=== PATIENT | female | born 1945 | race Caucasian/White ===

== ENCOUNTER 2017-03-26 00:12 | Inpatient (IN) | payer MEDICARE, OTHER ==
[2017-03-26] MEDS ORDERED: HYDROmorphone HCL INJ 2 MG/ML VIAL IV ONE (00:32)
[2017-03-26] MEDS ORDERED: ONDANSETRON INJ 4 MG/2 ML VIAL IV ONE ×2 (00:32→12:00)
--- NOTE | 2017-03-26 01:23 | RAD ---
EXAM DESCRIPTION: Ankle,Right 3 Views CLINICAL HISTORY: pain/deformity s/p fall COMPARISON: None. FINDINGS: 3 views of the right ankle. Acute mildly displaced fracture of the distal fibula above the level of the ankle mortise. Likely tibiotalar dislocation with fracture of the medial malleolus. Plantar calcaneal spur. Osteopenia. IMPRESSION: 1. Likely unstable right ankle fracture dislocation. Moderately displaced fracture of the distal fibula above the level of the ankle mortise. Mildly displaced medial malleolus fracture. Electronically signed by: Junior Muse 03/26/2017 1:22 AM [facility]
--- NOTE | 2017-03-26 01:25 | RAD ---
EXAM DESCRIPTION: Tibia/Fibula,Right CLINICAL HISTORY: pain/deformity s/p fall COMPARISON: None. FINDINGS: 2 views of the right tibia and fibula. Incompletely visualized likely unstable fracture dislocation of the distal right ankle. Please see dictation of the ankle for further details. No acute fracture of the tibial or fibular diaphyses. No fractures of the proximal tibia. IMPRESSION: 1. Incompletely visualized fracture or dislocation of the right ankle. No other fractures identified. Electronically signed by: Junior Muse 03/26/2017 1:24 AM [facility]
--- NOTE | 2017-03-26 01:25 | RAD ---
EXAM DESCRIPTION: Knee,Right 2 or More Views CLINICAL HISTORY: pain s/p fall COMPARISON: None. FINDINGS: 2 views of the right knee. No acute fracture or dislocation. Normal osseous mineralization. No definite joint effusion. IMPRESSION: No acute fracture or dislocation of the right knee. Electronically signed by: Junior Muse 03/26/2017 1:24 AM [employer]
--- NOTE | 2017-03-26 01:26 | ED.PDOC ---
History of Present Illness - General Chief Complaint: Lower Extremity Injury Stated Complaint: Fall with right leg injury Time Seen by Provider: 03/26/17 00:15 Source: RN notes reviewed, Vital Signs reviewed, family - Exam Limitations: other - Dementia - History of Present Illness Initial Comments: brings patient in after a fall with R ankle and knee pain. He reports she wanders around the house at night. Tonight he heard her fall in the living room. She can't say what happened and does not remember falling. Denies other injuries. Occurred: just prior to arrival Pain - Lower Extremity: moderate: Right Knee, Right Ankle Method of Injury: fell Improving Factors: immobilization, rest Worsening Factors: movement Allergies/Adverse Reactions: Allergies NO KNOWN ALLERGY Allergy (Unverified 09/21/12 17:15) Home Medications: Ambulatory Orders Escitalopram Oxalate [Lexapro] 20 mg PO BEDTIME 03/26/17 Lorazepam Gel 1 ml TD Q4H PRN 03/26/17 Lorazepam [Ativan] 0.5 mg PO Q8H PRN 03/26/17 Memantine HCl [Namenda] 10 mg PO BID 03/26/17 Metoprolol Tartrate 50 mg PO DAILY 03/26/17 Nitroglycerin [Nitrostat] 0.4 mg SL Q5MIN PRN 03/26/17 Omeprazole [Prilosec Cap] 40 mg PO DAILY 03/26/17 QUEtiapine FUMARATE [SEROquel] 100 mg PO BEDTIME 03/26/17 Simvastatin [Zocor] 40 mg PO BEDTIME 03/26/17 Tramadol HCl 50 mg PO Q6H PRN 03/26/17 amLODIPine BESYLATE [Norvasc] 5 mg PO DAILY 03/26/17 Review of Systems - Review of Systems Unable to Obtain Due To: dementia Family Medical History - Family History Mother Family History: Unknown Living Status: Physical Exam - Physical Exam General Appearance: Comfortable, No apparent distress, Well Developed, Well Groomed, Well Hydrated, Well Nourished Cardiovascular/Respiratory: regular rate, rhythm, no M/R/G, normal peripheral pulses, normal breath sounds, no respiratory distress Leg: bone tenderness - Proximal R Tibia Knee: normal inspection, non-tender, no evidence of injury Ankle: bone tenderness - R ankle, deformity - R ankle, limited ROM, pain, swelling Foot: normal inspection, no evidence of injury, normal ROM Neuro/Tendon: normal sensation, normal motor functions, normal tendon functions , responds to pain Mental Status: disoriented x 3 Skin: normal color, warm/dry Progress - Progress Progress: 03/26/17 02:54 Floor does not have room to admit patient. Discussed with Dr. Sneed, unable to get a hold of Dr. Montgomery. Will splint and wait for Dr. Montgomery to be available in AM. - EKG/XRAY/CT XRAY: ankle - Likely unstable R ankle fracture dislocation. Mod displaced distal fibula and mildly displaced medial Malleolus fractures per Radiologist - Additional EKG/XRAY/Consults XRAY #2: knee - No fracture/dislocation R knee per Radiologist XRAY #3: Tib/Fib: fracture as noted above per Radiologist Procedures - Splinting Right Ankle Hand-Made Type: fiberglass Splint: sugar-tong - with posterior splint Pre-Proc Neuro Vasc Exam: normal Post-Proc Neuro Vasc Exam: normal - Joint Reduction right ankle Conscious Sedation: No Reduction Attempts: 1 Pre-Procedure NV Exam: Yes Post Joint Reduction Film: joint not reduced Departure - Departure Clinical Impression: Ankle fracture, bimalleolar, closed Qualifiers: Encounter type: initial encounter Laterality: right Qualified Code(s): S82.841A - Displaced bimalleolar fracture of right lower leg, initial encounter for closed fracture Time of Disposition: 02:25 Disposition: Admit Patient Condition: Poor Home Medications: Ambulatory Orders Escitalopram Oxalate [Lexapro] 20 mg PO BEDTIME 03/26/17 Lorazepam Gel 1 ml TD Q4H PRN 03/26/17 Lorazepam [Ativan] 0.5 mg PO Q8H PRN 03/26/17 Memantine HCl [Namenda] 10 mg PO BID 03/26/17 Metoprolol Tartrate 50 mg PO DAILY 03/26/17 Nitroglycerin [Nitrostat] 0.4 mg SL Q5MIN PRN 03/26/17 Omeprazole [Prilosec Cap] 40 mg PO DAILY 03/26/17 QUEtiapine FUMARATE [SEROquel] 100 mg PO BEDTIME 03/26/17 Simvastatin [Zocor] 40 mg PO BEDTIME 03/26/17 Tramadol HCl 50 mg PO Q6H PRN 03/26/17 amLODIPine BESYLATE [Norvasc] 5 mg PO DAILY 03/26/17 Decision To Admit - Decistion To Admit Decision to Admit Reason: Admit from ER Decision to Admit Date: 03/26/17 Decision to Admit Time: 02:24
--- NOTE | 2017-03-26 02:53 | RAD ---
EXAM DESCRIPTION: Ankle,Right 2 Views CLINICAL HISTORY: post reduction COMPARISON: Same day FINDINGS/IMPRESSION: Redemonstrated right ankle fracture dislocation. Moderately displaced distal fibular fracture above the level of the ankle mortise. Mildly displaced medial malleolus fracture. Plantar calcaneal spur. No significant change in alignment compared with the previous study. Electronically signed by: Junior Muse 03/26/2017 2:52 AM [facility]
--- NOTE | 2017-03-26 09:00 | RAD ---
EXAM DESCRIPTION: Ankle,Right 2 Views CLINICAL HISTORY: Dr. Montgomery requests repeat trauma COMPARISON: 26 March 2017 time 2:26 TECHNIQUE: AP and lateral right FINDINGS: A bimalleolar fractures observed. There is disruption of the ankle mortise. There is lateral subluxation of the talus in relation to the tibia. A plantar calcaneal spurs observed. Osteopenia is noted. Soft tissue swelling is seen. Alignment is not significantly improved when compared with prior exams. IMPRESSION: Bimalleolar fracture dislocation of the ankle is observed with lateral subluxation of the talus relation to the tibia. Electronically signed by: Yosef Mckeon MD 03/26/2017 8:58 AM [facility]
[2017-03-26] MEDS ORDERED: LIDOCAINE 2 % GEL 5 ML TUBE TOP ONE (11:07)
[2017-03-26] MEDS ORDERED: fentaNYL CITRATE INJ 50 MCG/ML AMP ONE (11:07)
[2017-03-26] MEDS ORDERED: LACTATED RINGERS 1,000 ML ONE (11:07)
[2017-03-26] MEDS ORDERED: SODIUM CHLORIDE 0.9% (FLUSH) 10 ML SYG IV PRN (11:12)
[2017-03-26] MEDS ORDERED: ONDANSETRON INJ 4 MG/2 ML VIAL IV PRN (11:12)
[2017-03-26] MEDS ORDERED: LEVALBUTEROL NEBS 1.25 MG/3 ML VIAL INH PRN (11:12)
[2017-03-26] MEDS ORDERED: MORPHINE SULFATE INJ 10 MG/ML VIAL IV PRN (11:12)
--- NOTE | 2017-03-26 11:15 | HP ---
HISTORY OF PRESENT ILLNESS: This 71-year-old, white female is admitted to the hospital via the Emergency Room after a significant fall which occurred at home last evening. She has a significant problem with severe disability associated with dementia. Her heard the patient fall and went over and tried to help her get up, but because of ankle deformity and her inability to support her weight, he called 911 and EMS was able to come and bring her to the Emergency Room. In the Emergency Room, she was found to have an unstable bimalleolar right ankle fracture which was not able to be bearing weight and will require orthopedic treatment course. Surgery is to be performed later in the afternoon on the day of admission because of the need for getting specialized equipment in order to do the procedure of stabilization. The patient is unable to contribute to her history, so the history was primarily from the as well as the patient's two sisters. The patient is admitted to the hospital for anticipation of the surgical procedure to assist with stabilizing the unstable fracture and then to continue with analgesic control and physical therapy evaluation and rehab while here until she may eventually require continued rehabilitation in a local rehab facility. PAST MEDICAL HISTORY: 1. Advancing dementia with disability. 2. History of rheumatic fever as a child with no sequelae. PAST SURGICAL HISTORY: 1. Cervical spine with 3 vertebrae fused. 2. Ganglion cyst. 3. One . OB HISTORY: She has had 3 pregnancies and 3 deliveries. CURRENT MEDICATIONS: Please refer to medicines listed by nurse for verified home medications. ALLERGIES: NONE KNOWN. FAMILY HISTORY: Positive for cancer, coronary artery disease, and dementia. 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 She has never smoked tobacco. REVIEW OF SYSTEMS: GENERAL: Weight ist able. No fever or chills recently. HEENT: Hearing and vision appear to be fairly good, but the patient is not able to communicate as well as she was hoped to. LUNGS: Occasional shortness of breath, no cough, no hemoptysis. CARDIOVASCULAR: No significant palpitations or chest pains. GASTROINTESTINAL: Appetite is fair. No bleeding into the stool. No melena. GENITOURINARY: No dysuria. EXTREMITIES: Significant pain in the right ankle after a fall. NEUROLOGIC: Significant disability from dementia with inability to fully converse and contribute to her history. She is able to ambulate, but is at increased fall risk. The patient is not safe to be cared for her at home even with her . PHYSICAL EXAMINATION: VITAL SIGNS: Temperature up to 99.6. Blood pressure has varied between 145/91 down to 92/54. Pulse oximetry varying between 99% on room air down to 96%. Estimated weight is 83.9 kg. GENERAL: The patient is able to occasionally communicate by nodding her head yes or shaking the head no, generally appropriately, but many times she will just stare and does not answer the questions asked. The and sisters are able to assist with the collection of history data. NECK: Supple. LUNGS: Diminished breath sounds, otherwise clear. CARDIOVASCULAR: Heart tones are regular without any significant gallops. No chest wall pain. ABDOMEN: Generally soft to palpation with no organomegaly, masses or tenderness. EXTREMITIES: Significant pain and discomfort even on slight movement or palpation of the right ankle with associated deformity noted. Posterior splint is in place to assist with stabilization anticipating surgical repair. NEUROLOGIC: The patient has significant disability with her dementia having progressed over recent months. Difficulty communicating. The patient does walk , but is unable to do so now because of the unstable fracture. RADIOLOGY: X-ray shows bimalleolar fracture of the right ankle with dislocation associated. ASSESSMENT: 1. Acute bimalleolar unstable ankle fracture on the right requiring surgical intervention to stabilize. 2. Advanced dementia with disability minimizing the patient's ability to communicate and interact with others. 3. Significant fall risk is noted. PLAN: The patient will be going to surgery when the orthopedic hardware required is available later on the afternoon of admission. Discussed with family the various risk factors and they are unable to care for the patient at home even postoperatively. This will require patient advice with Social Service assistance and eventually will be able to participate with local rehab facility when clinically stable to participate. Closely observe and monitor with proper analgesia in the interim. #[id number] [facility]
[2017-03-26] MEDS: KETOROLAC TROMETHAMINE INJ 30 MG/ML VIAL IV SCH ×2 (11:35→19:51)
[2017-03-26] MEDS ORDERED: ceFAZolin SODIUM 1 GM VIAL ONE ×2 (11:38→12:11)
[2017-03-26] MEDS ORDERED: VANCOMYCIN HCL INJ 1,000 MG VIAL IVPB ONE ×3 (11:38→14:15)
[2017-03-26] MEDS ORDERED: SODIUM CHL 0.9% 100ML MINI-BAG 100 ML IVPB ONE (11:39)
[2017-03-26] MEDS ORDERED: SODIUM CHLORIDE 0.9% 250ML 250 ML ONE (11:41)
[2017-03-26] MEDS ORDERED: METOCLOPRAMIDE HCL INJ 10 MG/2 ML VIAL IV ONE (12:00)
[2017-03-26] MEDS ORDERED: PROPOFOL 200 MG/20 ML VIAL IV ONE (12:00)
[2017-03-26] MEDS ORDERED: BUPIVACAINE 0.25% INJ 30 ML VIAL INJ ONE ×2 (12:31→14:20)
[2017-03-26] MEDS ORDERED: ceFAZolin SODIUM 1 GM VIAL INJ ONE ×2 (12:31→14:15)
[2017-03-26] MEDS ORDERED: SODIUM CHLORIDE 0.9% 1000ML 1,000 ML ONE (15:39)
[2017-03-26] MEDS: IV SET AND CAP CHANGE INJ INJ SCH (15:50)
[2017-03-26] MEDS: SODIUM CHLORIDE 0.9% 1000ML 1,000 ML IVS PRN (15:50)
--- NOTE | 2017-03-26 15:50 | RAD ---
EXAM DESCRIPTION: Ankle,Left 2 Views CLINICAL HISTORY: POST OP COMPARISON: 26 March 2017 TECHNIQUE: AP and lateral FINDINGS: The exam is obtained through casting material. The examination demonstrates a plate and screws bridging a fracture of the distal fibula. Screw fixation of the medial malleolar fracture is also observed. Fractures have been reduced to more anatomic alignment. IMPRESSION: ORIF bimalleolar fracture dislocation of the right ankle Electronically signed by: Yosef Mckeon MD 03/26/2017 3:49 PM [facility]
[2017-03-26] MEDS ORDERED: HYDROcodone 5MG/APAP 325MG 1 EA TAB PO PRN (18:00)
[2017-03-26] MEDS ORDERED: MEMANTINE 10 MG TAB ONE (19:35)
[2017-03-26] MEDS ORDERED: ESCITALOPRAM 10 MG TAB ONE (19:36)
[2017-03-26] MEDS: ESCITALOPRAM 10 MG TAB PO SCH (20:53)
[2017-03-26] MEDS: MEMANTINE 10 MG TAB PO SCH (20:53)
[2017-03-26] MEDS: LORazepam 0.5 MG TAB PO PRN (20:57)
[2017-03-26] MEDS: ACETAMINOPHEN 500 MG TAB PO PRN (22:04)
[2017-03-27] MEDS: KETOROLAC TROMETHAMINE INJ 30 MG/ML VIAL IV SCH ×2 (03:49→13:57)
[2017-03-27] MEDS: SODIUM CHLORIDE 0.9% 1000ML 1,000 ML IVS PRN (03:50)
--- NOTE | 2017-03-27 08:21 | PN ---
DATE: 03/27/17 SUBJECTIVE: Ms. Valdes is doing well. She had pain control overnight. OBJECTIVE: Afebrile. Vital signs stable. Dressing is clean, dry and intact. ASSESSMENT: Status post open reduction and internal fixation of ankle. PLAN: We will begin therapy for [id number]. #[id number] [facility]
--- NOTE | 2017-03-27 08:29 | OP ---
DATE OF PROCEDURE: 03/26/17 PREOPERATIVE DIAGNOSIS: 1. Right ankle fracture. POSTOPERATIVE DIAGNOSIS: 1. Right ankle fracture. PROCEDURE 1. Open reduction and internal fixation of ankle.: SURGEON: Humble Montgomery MD. BANQUET STEWARD: Edi Scherer CST, SA-Noemy. ANESTHESIA: General anesthesia. COMPLICATIONS: None. FINDINGS: Comminution of the fibula with fracture of the medial malleolus. There was a small fragment off the posterior medial malleolus as well. INDICATION: Ms. Valdes has a history of fall with twisting injury and subsequently came to the Emergency Room. She had no other injury associated with this fall. She does suffer from dementia and, therefore, there is a degree of difficulty in gaining the story from her, however, her caregiver is with her right now. PROCEDURE: The patient was brought to the Operating Room and placed in supine position. General anesthesia was induced and the the patient's leg was sterilely prepped and draped. Following prepping and draping, an incision was made on the lateral aspect of the ankle directly overlying the fibula. Dissection was carried down to the fibula and the fracture was identified. It was noted that there was pretty significant comminution and she had very osteoporotic bone. Despite that, I was able to achieve a reduction after cleaning up the fracture site. Under fluoroscopic imaging, the plate was placed laterally with a combination of both cortical and locking screws. Attention was then focused on the medial aspect. An incision was made directly oval-shaped the medial malleolus and dissection was carried down to the medial malleolus and the fracture site was identified. Following identification of the fracture site, it was debrided and provisional reduction was achieved. Following the reduction, two cannulated screws were passed across the fracture site. The reduction screw lengths were checked under fluoroscopic imaging to ensure appropriate reduction. The ankle was then manipulated under fluoroscopic imaging to ensure there was no widening of the mortise. There was no widening and, therefore, the wounds were thoroughly irrigated and closed with Nylon suture. Sterile dressings were placed. Splint was placed. The patient was awoken from anesthesia and taken to Recovery. POSTOPERATIVE INSTRUCTIONS: She will be [id number] for likely at least two months. She does suffer from Alzheimer's and this will be difficult to get her to comply with. We will continue to monitor her for healing of the fracture and allow progressive weight-bearing following that. #[id number] [facility]
[2017-03-27] MEDS: MEMANTINE 10 MG TAB PO SCH ×2 (09:40→20:31)
[2017-03-27] MEDS: METOPROLOL SUCCINATE XL 25 MG TAB PO SCH (09:40)
[2017-03-27] MEDS: amLODIPine BESYLATE 5 MG TAB PO SCH (09:40)
[2017-03-27] MEDS: KCL 20MEQ/0.45% NS 1,000 ML IVS PRN (18:06)
[2017-03-27] MEDS: ACETAMINOPHEN 500 MG TAB PO PRN (18:19)
--- NOTE | 2017-03-27 19:17 | PN ---
DATE: 03/27/17 SUPERVISING PHYSICIAN: Jose E Heard M.D. SUBJECTIVE: The patient is resting in bed with her leg elevated. Dressing is in place. She remains afebrile. Her family is present. The patient does not communicate but nods her head. She appears to be in no acute distress. OBJECTIVE: VITAL SIGNS: Temperature 98.0, pulse 84, blood pressure 113/80, respirations 20, satting 98% on room air. CHEST: Lungs are clear to auscultation. HEART: Regular rate and rhythm. ABDOMEN: Soft, non-tender. Positive bowel sounds. EXTREMITIES: Right leg has a bulky dressing splint in place. Capillary refill is brisk. Pulses are strong bilaterally. NEUROLOGIC: She only responds to yes or no questions with a nod and smiles, but no discernible neurological deficits are noted. Family present notes this is pretty much her baseline status. LABORATORY: Postoperative H&H shows 10.2 hemoglobin, 30 hematocrit, white count 7,200. Chemistries show just a potassium at 3.5 with sodium 138. BUN 31 , creatinine 1.58 with calcium 7.8. ASSESSMENT: 1. Postoperative day 1 for an open reduction and internal fixation of the right ankle status post same level fall with surgery being performed by Dr. Humble Montgomery, orthopedic surgeon. 2. Advancing dementia with disability minimizing the patient's ability to communicate and making rehab potential difficult. 3. Significant risk for falls. PLAN: The patient will be followed as she continues to progress through her postoperative phase and physical therapy. Arrangements have been made for the patient to be transferred to [facility] for continued physical therapy either on Thursday or Thursday. Will continue to monitor the patient closely until discharge. Once discharged, she will need continued followup with Dr. Montgomery and her primary care provider, Dr. Mann. #[id number] [facility]
[2017-03-27] MEDS: ESCITALOPRAM 10 MG TAB PO SCH (20:30)
[2017-03-27] MEDS: QUEtiapine FUMARATE 100 MG TAB PO SCH (20:31)
[2017-03-28] MEDS: KCL 20MEQ/0.45% NS 1,000 ML IVS PRN (06:46)
[2017-03-28] MEDS: MEMANTINE 10 MG TAB PO SCH ×2 (09:21→21:11)
[2017-03-28] MEDS: ACETAMINOPHEN 500 MG TAB PO PRN (09:21)
[2017-03-28] MEDS: amLODIPine BESYLATE 5 MG TAB PO SCH (09:21)
[2017-03-28] MEDS: METOPROLOL SUCCINATE XL 25 MG TAB PO SCH (09:21)
[2017-03-28] MEDS: SODIUM CHLORIDE 0.9% (FLUSH) 10 ML SYG IV SCH ×2 (09:22→21:10)
--- NOTE | 2017-03-28 09:52 | PCM.CORE ---
Physician DVT/VTE - Nurse DVT Assessment & Total Each Risk Factor Represents 5 Points: Hip,Pelvis,leg Fx <1month, Major Trauma < 1 month Each Risk Factor Represents 2 Points: Age 60-74, Major Surgery >45 minutes Each Risk Factor is 1 Point: Obesity (BMI >25) DVT Assessment Score: 15 - 5 or more Very High Risk Treatments: Early Ambulation *, Sequential Compression Device Pharmacological: Enoxaparin 40mg SQ Daily
[2017-03-28] MEDS: ENOXAPARIN SODIUM 30 MG/0.3 ML SYG SUBCU SCH (12:08)
--- NOTE | 2017-03-28 15:19 | PN ---
DATE: 03/28/17 SUBJECTIVE: Ms. Valdes is doing well and her pain is under control. OBJECTIVE: Her wounds are clean. There are no signs or symptoms of infection. PLAN: At this point she can remain nonweightbearing. #[id number] [facility]
[2017-03-28] MEDS ORDERED: POLYETHYLENE GLYCOL 3350 17 GM PCKT PO ONE (16:32)
[2017-03-28] MEDS: QUEtiapine FUMARATE 100 MG TAB PO SCH (21:11)
[2017-03-28] MEDS: ESCITALOPRAM 10 MG TAB PO SCH (21:11)
--- NOTE | 2017-03-28 22:01 | PN ---
DATE: 03/28/17 SUPERVISING PHYSICIAN: Jose E Heard M.D. SUBJECTIVE: The patient again is in bed with the leg elevated. Dressing remains in place. She continues to be noncommunicative but nods her head to yes /no questions. She has been afebrile. She appears to be comfortable in no acute distress. OBJECTIVE: VITAL SIGNS: Temperature 98.4, pulse 67, blood pressure 126/77, respirations 15, satting 95% on room air. I's and O's show a negative balance of 150 with 2100 in, 2250 out. Weight 86.2 kg. CHEST: Lungs are clear to auscultation. HEART: Regular rate and rhythm. ABDOMEN: Soft, non-tender. Positive bowel sounds. EXTREMITIES: Large splint remains in place on the right ankle. Pulses were strong. Capillary refill is brisk. NEUROLOGIC: She remains very pleasant, alert but not oriented to anything other than herself and her . No neurological deficits were noted. LABORATORY: Chemistries today showed an improved potassium to 3.8 with chloride slightly elevated at 112, BUN 16, creatinine 1.01 compared to previous of 1.58, calcium 8.2. ASSESSMENT: 1. Postoperative day 2 for open reduction and internal fixation of the right ankle status post same level fall with surgery being performed by Dr. Humble Montgomrey, orthopedic surgeon. 2. Advanced dementia with disability minimizing the patient's ability to communicate and take care of herself making rehab potential very difficult. 3. Significant risk for falls. PLAN: Will continue to follow the patient as she continues with physical therapy with anticipation of discharging in the near future to [facility]. More likely will discharge Thursday so that final arrangements can be made for her medications, including her Ativan and other arrangements with her outpatient hospice care through [facility]. Will await Dr. Montgomery's consultation and treatment plan as the patient remains nonweightbearing. Until discharge, will continue to monitor and treat appropriately. #[id number] [facility]
[2017-03-29] MEDS ORDERED: POLYETHYLENE GLYCOL 3350 17 GM PCKT PO SCH (09:00)
[2017-03-29] MEDS: POLYETHYLENE GLYCOL 3350 17 GM PCKT PO SCH (09:10)
[2017-03-29] MEDS: MEMANTINE 10 MG TAB PO SCH ×2 (09:11→21:46)
[2017-03-29] MEDS: amLODIPine BESYLATE 5 MG TAB PO SCH (09:11)
[2017-03-29] MEDS: METOPROLOL SUCCINATE XL 25 MG TAB PO SCH (09:11)
[2017-03-29] MEDS: SODIUM CHLORIDE 0.9% (FLUSH) 10 ML SYG IV SCH ×2 (09:12→21:46)
[2017-03-29] MEDS: ENOXAPARIN SODIUM 30 MG/0.3 ML SYG SUBCU SCH (09:15)
[2017-03-29] MEDS: IV SET AND CAP CHANGE INJ INJ SCH (12:36)
[2017-03-29] MEDS: ACETAMINOPHEN 500 MG TAB PO PRN (15:04)
[2017-03-29] MEDS: LORazepam 0.5 MG TAB PO PRN (15:04)
--- NOTE | 2017-03-29 18:18 | PN ---
DATE: 03/29/17 SUPERVISING PHYSICIAN: Jose E Heard M.D. SUBJECTIVE: The patient has been doing well. She was placed in a boot yesterday. She is tolerating this comfortably. Her remains at her side and is making arrangements for discharge tomorrow so that she can go to [facility]. The patient remains very comfortable in no acute distress, and very pleasant. She remains noncommunicative but again still nods her head yes or no, as her notes this is her normal baseline status. OBJECTIVE: VITAL SIGNS: Afebrile, temperature 97.4, blood pressure 139/64, heart rate 74, respirations 16, satting 94% on room air. I's and O's show a negative balance of 398 with 1102 in, 1500 out. Weight is 87.8 kg. CHEST: Clear to auscultation. HEART: Regular rate and rhythm. ABDOMEN: Soft, non- tender. Positive bowel sounds. EXTREMITIES: Right ankle has a boot in place. Capillary refill is brisk. Skin is warm to touch and pink. NEUROLOGIC: She is pleasant, only nods her head and answers yes or no questions which is her baseline mental status. LABORATORY: No repeat laboratory studies are available. ASSESSMENT: 1. Postoperative day 3 for open reduction and internal fixation of the right ankle status post same level fall with surgery being performed by Dr. Humble Montgomery, orthopedic surgeon. 2. Advanced dementia with disability minimizing the patient's ability to communicate and take care of herself making rehab potential very difficult , therefore arrangements for a director long term care care facility. 3. Significant risk for falls secondary to #1 and no weightbearing status. PLAN: The patient will be discharged tomorrow to [facility]. Her has made arrangements to have furniture and things over there prior to admission and arrangements need to be made with [facility] for her medications, including her Ativan and pain management. She remains nonweightbearing and will need physical therapy assessment for treatment and evaluation upon admission. Ordaz continues to be in place. Need to assess whether or not this can be removed prior to discharge as the patient again is only able to do transfers nonweightbearing, but has had no difficulties going from a chair to the bed. Until discharge tomorrow, will continue to monitor and treat appropriately. #[id number] [facility]
[2017-03-29] MEDS: QUEtiapine FUMARATE 100 MG TAB PO SCH (21:46)
[2017-03-29] MEDS: ESCITALOPRAM 10 MG TAB PO SCH (21:46)
--- NOTE | 2017-03-30 08:21 | PN ---
DATE: 03/30/17 SUBJECTIVE: Ms. Valdes is doing well and not having any significant pain. OBJECTIVE: Afebrile. Vital signs stable. Wounds are clean. There are no signs or symptoms of infection. ASSESSMENT: Status post open reduction and internal fixation of ankle. PLAN: She will continue on weight-bearing status. She is to be [facility] to [facility] today. [facility][id number] [facility]
[2017-03-30] MEDS: METOPROLOL SUCCINATE XL 25 MG TAB PO SCH (09:20)
[2017-03-30] MEDS: MEMANTINE 10 MG TAB PO SCH (09:20)
[2017-03-30] MEDS: amLODIPine BESYLATE 5 MG TAB PO SCH (09:20)
[2017-03-30] MEDS: SODIUM CHLORIDE 0.9% (FLUSH) 10 ML SYG IV SCH (09:21)
[2017-03-30] MEDS: POLYETHYLENE GLYCOL 3350 17 GM PCKT PO SCH (09:21)
[2017-03-30] MEDS: ENOXAPARIN SODIUM 30 MG/0.3 ML SYG SUBCU SCH (09:21)
--- NOTE | 2017-03-30 10:48 | DS ---
DISCHARGE DIAGNOSIS: 1. Postoperative day 4 for open reduction and internal fixation of an unstable bimalleolar the right ankle fracture after a same level fall with surgery performed by Dr. Humble Montgomery, orthopedic surgeon. 2. Advanced dementia with disability preventing the patient from fully being able to communicate and take care of herself and the patient requiring ongoing [facility]ci facility care while [id number] and rehabilitation until safe to return home. 3. Significant risk for falls secondary to the [id number] treatment course and recent ankle fracture. HISTORY OF PRESENT ILLNESS: This 71-year-old, white female apparently fell at home with resultant unstable bimalleolar fracture of the ankle necessitating internal fixation and open reduction of fracture dislocation of that ankle. This require significant rehabilitation which was not available at home and she is to be transferred to a fci facility to assist with her ongoing care, especially since she is [id number] with the fracture shoe in place after the surgical intervention has been completed. The patient has advancing dementia with severe disability, resulting in it being quite difficult and not safe for her to be able to be managed at home. PROCEDURE: Open reduction and internal fixation was performed on 03/27/[address] Humble Montgomery to repair a bimalleolar unstable fracture dislocation of the right ankle. This was well tolerated with rehabilitation starting after immobilization performed at the time of surgery. LABORATORY: White count 7,200, hemoglobin dropped to 10.2, INR 1.05. Chemistries showed potassium 3.8, BUN 16 down from 31, and creatinine 1.01 down from 1.58. Glucose 96. Urinalysis generally clean with no cultures obtained. Ankle x-ray after the surgical intervention showed stabilization of the fracture dislocation in an anatomical position. HOSPITAL COURSE: The patient was doing well on the fourth day after surgery. She was still having difficulty communicating, but in many ways seemed to be more stable at the time of discharge than she was at the time of admission. She was ready for continued outpatient management. PLAN: The patient is discharged to [facility] nursing facility for rehabilitation with physical therapy intervention under orthopedic surgery supervision. She is to followup with Dr. Humble Montgomery next 04/06/17, for postoperative evaluation of 10 days as well as for suture removal and further evaluation for rehab instructions. She may followup with Dr. Mann in 2 weeks. is very attentive and will continue also to assist with her ongoing care. care home care is to continue. She is to be non-weight -bearing at [facility]. She is encouraged to breathe deeply to help keep the alveoli of the lungs open and help to prevent pneumonia and to assist with DVT prophylaxis. She is to return if not improving. [facility][id number] [facility]
[2017-03-30 10:59] VITALS: BP 114/62; TEMP 97; O2SAT 94
[2017-03-30] MEDS ORDERED: INFLUENZA VIRUS VACC (ADULT) 0.5 ML SYG IM ONE (11:10)
== END 2017-03-30 13:25 | DRG 494 ==
LOC: ER 00:12 → EDSTATUS 09:40 → MS 11:14
PROVIDERS: ADMIT Emergency Medicine; ATTEND Emergency Medicine
PROC: 0QSG04Z Reposition Right Tibia with Internal Fixation Device, Open Approach (ICD-10-PCS; 2017-03-26)
PROC: 0QSJ04Z Reposition Right Fibula with Internal Fixation Device, Open Approach (ICD-10-PCS; principal; 2017-03-26 11:50)
DX: S82.841A Displaced bimalleolar fracture of right lower leg, initial encounter for closed fracture (principal); W19.XXXA Unspecified fall, initial encounter; Z66 Do not resuscitate; F03.90 Unspecified dementia, unspecified severity, without behavioral disturbance, psychotic disturbance, mood disturbance, and anxiety; Z98.1 Arthrodesis status; Z91.81 History of falling; Y92.008 Other place in unspecified non-institutional (private) residence as the place of occurrence of the external cause; Z79.899 Other long term (current) drug therapy

== ENCOUNTER → 2017-04-06 | Outpatient (CLI) | payer MEDICARE, OTHER ==
--- NOTE | 2017-04-06 10:43 | RAD ---
Study: Three views of the Right Ankle. Indication: ANKLE PAIN Comparison: March 26, 2017. Impression: Prior ORIF of the medial malleolus and lateral malleolus fractures noted. The surgical constructs appear stable. The lateral malleolar fracture is indistinct with progressive healing. On the lateral view there is persistent lucency of the anterior margin of the medial malleolus without complete union. Attention to this site on follow-up recommended as and a component of nonunion may be present. Small tibiotalar joint effusion. Soft tissue swelling about the ankle. Mild progressive ossification superficial to the mid to distal aspect of the lateral malleolar construct. Electronically signed by: Cleveland Kunz MD 04/06/2017 10:41 AM [facility]
== END | disposition home or self-care (01) ==
LOC: RAD 09:03
PROVIDERS: ATTEND Orthopaedic Surgery
DX: M25.571 Pain in right ankle and joints of right foot (principal)

== ENCOUNTER → 2017-04-08 | Outpatient (CLI) | payer MEDICARE, OTHER | END | disposition home or self-care (01) | LOC: GT 06:07 | PROVIDERS: ATTEND Family Medicine | DX: E78.00 Pure hypercholesterolemia, unspecified (principal); I10 Essential (primary) hypertension; K21.9 Gastro-esophageal reflux disease without esophagitis | CPT/HCPCS: 36415; 80053; 85025; P9603 ==

== ENCOUNTER → 2017-05-07 | Outpatient (CLI) | payer MEDICARE, OTHER ==
--- NOTE | 2017-05-07 10:34 | RAD ---
EXAM DESCRIPTION: Right ankle, 4 radiographs CLINICAL HISTORY: CLOSED FX OF ANKLE FINDINGS/ IMPRESSION: Comparison 04/06/2017 Plate and screw fixation distal fibula without hardware fracture or displacement. 2 screws traverse the medial malleolus fracture. Faint callus along the fracture of the medial malleolus. Fracture line of the fibula not seen. Ankle mortise is symmetric. No acute fracture or osteochondral lesion No tarsal fracture. Soft tissue swelling Large well-corticated plantar calcaneal spur Electronically signed by: Juan Ramon Aguilar MD 05/07/2017 10:32 AM [facility]
== END | disposition home or self-care (01) ==
LOC: RAD 08:40
PROVIDERS: ATTEND Orthopaedic Surgery
DX: S82.91XD Unspecified fracture of right lower leg, subsequent encounter for closed fracture with routine healing (principal)

== ENCOUNTER → 2017-06-18 | Outpatient (CLI) | payer MEDICARE, OTHER ==
--- NOTE | 2017-06-19 17:36 | RAD ---
EXAM DESCRIPTION: Ankle,Right 3 Views CLINICAL HISTORY: CLOSED FX OF ANKLE COMPARISON: 07 May 2017 TECHNIQUE: 3 views right FINDINGS: The exam reveals a plate and screws bridging a fracture of the distal fibula and screws remain malleolar fracture. No evidence of loosening or infection is seen. Mild osteopenia is noted. A plantar calcaneal spur is noted. No new injury is noted. IMPRESSION: ORIF bimalleolar fracture of the right ankle. No complication is observed. Electronically signed by: Yosef Mckeon MD 06/19/2017 5:35 PM [facility]
== END ==
LOC: RAD 08:00
PROVIDERS: ATTEND Orthopaedic Surgery
DX: S82.91XD Unspecified fracture of right lower leg, subsequent encounter for closed fracture with routine healing (principal)

== ENCOUNTER → 2017-09-28 | Outpatient (CLI) | payer OTHER | LOC: GT 08:13 | PROVIDERS: ATTEND Family Medicine | DX: I10 Essential (primary) hypertension (principal); K21.9 Gastro-esophageal reflux disease without esophagitis ==

== ENCOUNTER 2018-05-01 02:43 | Inpatient (IN) | payer MEDICAID, MEDICARE, OTHER ==
[2018-05-01] MEDS ORDERED: SODIUM CHLORIDE 0.9% 1000ML 1,000 ML IVS ONE ×2 (03:05→04:10)
[2018-05-01] MEDS ORDERED: PANTOPRAZOLE SODIUM IV 40 MG VIAL IV ONE (03:05)
--- NOTE | 2018-05-01 03:36 | RAD ---
EXAM DESCRIPTION: Chest,1 View CLINICAL HISTORY: 72 years Female, VOMITING, HYPOXEMIA COMPARISON: None. FINDINGS: No consolidation. No pneumothorax. No significant pleural effusion. Cardiomediastinal silhouette is unremarkable. Osseous structures are unremarkable. IMPRESSION: No acute findings. Electronically signed by: Mikey Rico MD 05/01/2018 3:35 AM [facility]
--- NOTE | 2018-05-01 04:35 | ED.PDOC ---
History of Present Illness - General Chief Complaint: GI Problem Stated Complaint: vomiting coffee ground emesis x's 3 days Time Seen by Provider: 05/01/18 02:54 Source: family Exam Limitations: clinical condition - History of Present Illness Initial Comments: PT TRANSPORTED FROM OR FOR COFFEE GROUND EMESIS, HYPOTENSION AND TACHYCARDIA. HAS HAD MULTIPLE EPISODES OVER PAST 2 DAYS. Severity: severe Improving Factors: nothing Worsening Factors: nothing Allergies/Adverse Reactions: Allergies NO KNOWN ALLERGY Allergy (Verified 05/01/18 03:11) Home Medications: Ambulatory Orders Escitalopram Oxalate [Lexapro] 20 mg PO BEDTIME 03/26/17 Memantine HCl [Namenda] 10 mg PO BID 03/26/17 Omeprazole [Prilosec Cap] 40 mg PO DAILY 03/26/17 QUEtiapine FUMARATE [Seroquel] 50 mg PO BID 03/26/17 Simvastatin [Zocor] 40 mg PO BEDTIME 03/26/17 amLODIPine BESYLATE [Norvasc] 5 mg PO DAILY 03/26/17 Polyethylene Glycol 3350 [Miralax] 17 gm PO DAILY #30 pckt 03/30/17 Acetaminophen [Tylenol] 1,000 mg PO Q4HR PRN 05/01/18 Buspirone HCl 10 mg PO TID 05/01/18 Docusate Sodium [Colace Cap] 100 mg PO BID 05/01/18 Magnesium Hydroxide [Milk Of Magnesia] 30 ml PO DAILY PRN 05/01/18 Metoprolol Succinate [Toprol Xl] 50 mg PO DAILY 05/01/18 Ondansetron [Zofran Odt] 4 mg SL Q6HRS PRN 05/01/18 Phenergan Gel 0.2 ml TOP Q4HR PRN 05/01/18 Promethazine HCl Inj [Phenergan Inj] 25 mg IM Q6HR PRN 05/01/18 Review of Systems - Review of Systems Constitutional: Denies: chills, fever EENTM: States: see HPI Respiratory: States: see HPI Cardiology: States: see HPI Gastrointestinal/Abdominal: States: vomiting. Denies: diarrhea Genitourinary: States: see HPI Musculoskeletal: States: see HPI Skin: States: see HPI Neurological: States: see HPI Endocrine: States: see HPI Hematologic/Lymphatic: States: see HPI Unable to Obtain Due To: dementia Past Medical History (General) - Patient Medical History Hx Seizures: No Hx Stroke: No Hx Dementia: Yes Hx Asthma: No Hx of COPD: No Hx Cardiac Disorders: No Hx Congestive Heart Failure: No Hx Pacemaker: No Hx Hypertension: Yes Hx Thyroid Disease: No Hx Diabetes: No Hx Gastroesophageal Reflux: Yes Hx Renal Disease: No Hx Cancer: No Hx of HIV: No Hx Hepatitis C: No Hx MRSA: No Surgical History: noncontributory - Vaccination History Hx Tetanus, Diphtheria Vaccination: Yes Hx Influenza Vaccination: Yes Hx Pneumococcal Vaccination: Yes - Social History Hx Tobacco Use: No Hx Alcohol Use: No Hx Substance Use: No Hx Physical Abuse: No Hx Emotional Abuse: No - Activities of Daily Living Fdc/Assisted Living (if applicable):: [facility] Family Medical History - Family History Mother Family History: Unknown Living Status: Physical Exam - Physical Exam General Appearance: Frail, Other - UNRESPONSIVE Eye Exam: bilateral normal Ears, Nose, Throat: other - COFFEE GROUND EMESIS CIRCUMORALLY Neck: non-tender, normal inspection Respiratory: lungs clear, other - TACHYPNEIC, SATS 87% RA (HYPOXIC) Cardiovascular/Chest: tachycardia, systolic murmur - 2/ Gastrointestinal/Abdominal: non tender, soft, no organomegaly Extremity: non-tender, no pedal edema Neurologic: other - PT APPEARS AT HER BASELINE, NON VERBAL, DOES NOT FOLLOW COMMANDS Skin Exam: other - PALE, COOL, CLAMY Lymphatic: no adenopathy Progress - Progress Progress: 05/01/18 04:40 PT'S PULSE 120'S AFTER 2L BOLUS, BP 78, D/W MICAH BARNETT OK FOR HOSPICE TO ADMIT. - EKG/XRAY/CT XRAY: chest - L[facility] Departure - Departure Clinical Impression: Sepsis associated hypotension Dementia Qualifiers: Dementia type: unspecified type Dementia behavioral disturbance: without behavioral disturbance Qualified Code(s): F03.90 - Unspecified dementia without behavioral disturbance Hypertension Qualifiers: Hypertension type: essential hypertension Qualified Code(s): I10 - Essential (primary) hypertension Disposition: Admit Patient Condition: Serious Departure Forms: ED Discharge - Pt. Copy, Patient Portal Self Enrollment Referrals: Kt Mann MD [Primary Care Provider] - 1-2 Weeks Home Medications: Ambulatory Orders Escitalopram Oxalate [Lexapro] 20 mg PO BEDTIME 03/26/17 Memantine HCl [Namenda] 10 mg PO BID 03/26/17 Omeprazole [Prilosec Cap] 40 mg PO DAILY 03/26/17 QUEtiapine FUMARATE [Seroquel] 50 mg PO BID 03/26/17 Simvastatin [Zocor] 40 mg PO BEDTIME 03/26/17 amLODIPine BESYLATE [Norvasc] 5 mg PO DAILY 03/26/17 Polyethylene Glycol 3350 [Miralax] 17 gm PO DAILY #30 pckt 03/30/17 Acetaminophen [Tylenol] 1,000 mg PO Q4HR PRN 05/01/18 Buspirone HCl 10 mg PO TID 05/01/18 Docusate Sodium [Colace Cap] 100 mg PO BID 05/01/18 Magnesium Hydroxide [Milk Of Magnesia] 30 ml PO DAILY PRN 05/01/18 Metoprolol Succinate [Toprol Xl] 50 mg PO DAILY 05/01/18 Ondansetron [Zofran Odt] 4 mg SL Q6HRS PRN 05/01/18 Phenergan Gel 0.2 ml TOP Q4HR PRN 05/01/18 Promethazine HCl Inj [Phenergan Inj] 25 mg IM Q6HR PRN 05/01/18 Critical Care Note - Critical Care Note Total Time (mins): 40 Comments: EVENT: SEPSIS WITH SHOCK FINDINGS: SBP 78, PULSE 153, SYSTEM AT RISK: CARDIOVASCULAR INTERVENTION: FLUIDS, ADMISSION Decision To Admit - Decistion To Admit Decision to Admit Reason: Admit from ER Decision to Admit Date: 05/01/18 Decision to Admit Time: 04:41
[2018-05-01] MEDS ORDERED: CHLORHEXIDINE GLUCONATE 4 % 15 ML UD TOP ONE (05:35)
[2018-05-01] MEDS ORDERED: LIDOCAINE 1% 10 ML VIAL INJ ONE (05:36)
--- NOTE | 2018-05-01 05:38 | HP ---
SUPERVISING PHYSICIAN: Jose E Heard M.D. CHIEF COMPLAINT: Hypotension. HISTORY OF PRESENT ILLNESS: Ms. Valdes is a 72 year-old female patient that was brought to the Emergency Room from [facility] early this morning after she started having some coffee-ground type emesis. She is currently on hospice care with [facility] for advanced stage dementia. In the E. R., she was noted to be hypotensive and tachycardic with vital signs showing a blood pressure of 70/50 with a heart rate of 153. She had a low temperature of 99. She was satting 87% on nasal cannula at 3 liters. She was put on a nonrebreather at 12 liters and increased to 95%. Her family, which includes her , after discussing with Ian Hung physician, they wished to go to care and comfort measures and after discussing with the hospice care with [facility], [facility] requested that the patient be placed into the hospital under inpatient hospice. Her notes that she started having some stomach pains early in the week around Thursday that progressively worsened to where she was having emesis as described as coffee grounds and there was also mention of some change in her stools from the [facility] that were not normal but not described in any specific sense. [facility] nurse is going to admit the patient. Mrs. Valdes is in critical condition at time of admission. PAST MEDICAL HISTORY: 1. Advanced dementia on hospice care. 2. History of rheumatic fever as a child. PAST SURGICAL HISTORY: 1. Open reduction and internal fixation of the right ankle. 2. Cervical spine with 3 vertebrae fused. 3. Ganglion cyst removal. 4. section. CURRENT MEDICATIONS: 1. Zofran 4 mg every 6 hours. 2. Phenergan 25 mg every 6 hours as needed. 3. Tylenol 1,000 mg every 4 hours as needed for pain. 4. Milk of Magnesia 30 mg daily as needed. 5. Wellbutrin 10 mg b.i.d. 6. Colace 100 mg b.i.d. 7. Phenergan gel 0.2 mg topically every 4 hours as needed for nausea. 8. Toprol XL 50 mg daily. 9. Lexapro 20 mg at bedtime. 10. Namenda 10 mg b.i.d. 11. MiraLAX 17 grams daily. 12. Prilosec 40 mg daily. 13. Seroquel 0 mg b.i.d. 14. Zocor 40 mg at bedtime. 15. Norvasc 5 mg daily. ALLERGIES: NO KNOWN DRUG ALLERGIES. CODE STATUS: HOSPICE CARE, CARE AND COMFORT. DO NOT RESUSCITATE. FAMILY HISTORY: Positive for cancers, coronary artery disease and dementia. SOCIAL HISTORY: The patient resides at [facility]. She is . She has never smoked tobacco and has been in the [facility] since March 30, 2017. REVIEW OF SYSTEMS: Unobtainable due to the patient's unresponsiveness. PHYSICAL EXAMINATION: VITAL SIGNS: Temperature 99, pulse 153, blood pressure 70/50, respirations 28, satting 87% on nasal cannula at 3 liters, increasing to 95% on nonrebreather at 12 liters. Admission weight 69.7 kg. GENERAL: The patient is unresponsive, frail, pale in color. HEENT: Tympanic membranes are clear bilaterally. Oropharynx was notable for coffee ground emesis around her mouth. NECK: Supple, non-tender with full range of motion. CHEST: Significant with saturations 87% showing to be hypoxic on room air. CARDIOVASCULAR: Tachycardic rhythm with a systolic murmur noted at 2/6. No gallops or rubs. ABDOMEN: Non-tender, soft. Positive bowel sounds. EXTREMITIES: Without any edema. NEUROLOGIC: The patient is nonverbal. She does not follow any commands which is her baseline according to her family. SKIN: She is pale, cool and clammy. LABORATORY: White count on admission was 17,700 with hemoglobin 11.4, hematocrit 35.1, platelet count 299,000. Differential did show a left shift. Coagulation studies showed PT 11.2, PTT 17.8. Chemistries showed potassium 2.8, carbon dioxide 20, BUN 77, creatinine 3.64, glucose 263, calcium 9. AST 50, ALT 34. RADIOLOGY: Chest x-ray showed no acute findings. ASSESSMENT: 1. Probable sepsis, unknown source with signs of hypovolemic shock requiring fluids initially on admission with the patient being on hospice now transferred to inpatient care and comfort measures. 2. Probable gastrointestinal bleed both upper and lower. 3. Acute renal failure probably exacerbated by dehydration. 4. Electrolyte imbalance to include moderate hypokalemia. 5. Advanced dementia on hospice care. PLAN: The patient is going to be admitted by hospice care with [facility] for inpatient services under hospice. She will be on care and comfort measures only with orders being provided and written by the hospice nurse. Family is at bedside and I spent a length time discussing the patient's prognosis explaining to her family that her condition is grim. The family is very appreciative of this and understands the situation, and is prepared for what is to come. They are thankful for the services. We will continue to follow the patient as needed and help with hospice as required. Until the patient is discharged will continue to monitor and treat as needed. [id number]
[2018-05-01] MEDS ORDERED: ONDANSETRON INJ 4 MG/2 ML VIAL IV PRN (07:06)
[2018-05-01] MEDS: MORPHINE SULFATE INJ 10 MG/ML VIAL IV PRN ×2 (08:15→19:20)
[2018-05-01] MEDS ORDERED: IV SET AND CAP CHANGE INJ INJ SCH (08:30)
[2018-05-01] MEDS ORDERED: PROMETHAZINE HCL INJ 12.5 MG in SODIUM CHLORIDE 0.9% 50ML 50 ML IVPB PRN (10:31)
[2018-05-01] MEDS: SODIUM CHLORIDE 0.9% (FLUSH) 10 ML SYG IV PRN (19:19)
[2018-05-02] MEDS: MORPHINE SULFATE INJ 10 MG/ML VIAL IV PRN ×5 (06:11→23:25)
[2018-05-02] MEDS: SODIUM CHLORIDE 0.9% 1000ML 1,000 ML IVS PRN (09:37)
[2018-05-02 10:58] VITALS: BP 113/78; TEMP 97.3; O2SAT 97
[2018-05-02] MEDS: SODIUM CHLORIDE 0.9% (FLUSH) 10 ML SYG IV PRN ×4 (11:22→17:57)
[2018-05-02] MEDS ORDERED: SCOPOLAMINE PATCH 1.5MG 1 EA TD PRN (12:12)
[2018-05-02] MEDS ORDERED: MORPHINE SULFATE INJ 10 MG/ML VIAL IV PRN (12:15)
[2018-05-02] MEDS ORDERED: MORPHINE SULFATE INJ 10 MG/ML VIAL ONE ×3 (17:51→23:23)
[2018-05-02] MEDS ORDERED: NON-FORMULARY MEDICATION 1 EA MIS SL PRN (19:59)
--- NOTE | 2018-05-02 20:05 | PN ---
DATE: 05/02/18 SUPERVISING PHYSICIAN: Jose E Heard M.D. SUBJECTIVE: The patient continues to be unresponsive, only at times when she is obviously hurting and wakes up requesting pain medications. She has had multiple family members and friends at the bedside. Hospice nurse continues to monitor the patient's condition as needed. Vital signs are this point are showing to be fairly stable compared to admission. She has had no more emesis and has not had, as far as I know, any continued stools consistent with a GI bleed. OBJECTIVE: VITAL SIGNS: Temperature 98.5, pulse 101, blood pressure 116/72, respirations 16, satting 95% on nasal cannula at 4 liters at rest. I's and O's show a negative balance of 240 with weight 69.7 kg. GENERAL: The patient appears to be resting comfortably in no acute distress. She is unresponsive to verbal stimulus and minimally to painful stimulus. CHEST: Lungs remain clear but diminished throughout. HEART: Regular rate and rhythm with a murmur noted at 2/6. ABDOMEN: Nondistended but soft with positive bowel sounds. EXTREMITIES: Without any edema. SKIN: She remains warm and very pale. No labs or radiographic studies are being followed. ASSESSMENT: 1. Probable sepsis, unknown source with signs of hypovolemic shock requiring fluids initially on admission with the patient being on hospice now transferred to inpatient care and comfort measures. 2. Probable gastrointestinal bleed both upper and lower. 3. Acute renal failure probably exacerbated by dehydration. 4. Electrolyte imbalance to include moderate hypokalemia. 5. Advanced dementia on hospice care. PLAN: Will continue to follow the patient as needed. At this point hospice has written all orders. I continue to visit with family and offer support as needed and they are appreciative of the hospital and staff. Given the patient's grim condition and very poor prognosis, we anticipate either discharging home as she is showing to be stable if the family wants to take her back to [place] or certainly the patient could deteriorate quickly in the next 24 hours. Until then will continue to monitor as needed and offer any assistance that we can. #[id number] [facility]
[2018-05-02] MEDS ORDERED: SODIUM CHLORIDE 0.9% (FLUSH) 10 ML SYG IV SCH (21:00)
[2018-05-02] MEDS ORDERED: ATROPINE 1% OPHTH SOL 1 DROP DROPS ONE (21:22)
[2018-05-03] MEDS: SODIUM CHLORIDE 0.9% 1000ML 1,000 ML IVS PRN (15:03)
--- NOTE | 2018-05-16 21:34 | DS ---
SUPERVISING PHYSICIAN: Jose E Heard M.D. ADMISSION DIAGNOSIS: 1. Probable sepsis, unknown source with signs of hypovolemic shock requiring fluids initially on admission with the patient being on hospice now transferred to inpatient care and comfort measures. 2. Probable gastrointestinal bleed both upper and lower. 3. Acute renal failure probably exacerbated by dehydration. 4. Electrolyte imbalance to include moderate hypokalemia. 5. Advanced dementia on hospice care. DISCHARGE DIAGNOSIS: 1. Cardiopulmonary arrest secondary to sepsis. REASON FOR HOSPITALIZATION: Ms. Valdes is a 72 year-old female patient that was brought to the Emergency Room from [facility] early this morning after she started having some coffee-ground type emesis. She is currently on hospice care with [facility] for advanced stage dementia. In the E. R, she was noted to be hypotensive and tachycardic with vital signs showing a blood pressure of 70/50 with a heart rate of 153. She had a low temperature of 99. She was satting 87% on nasal cannula at 3 liters. She was put on a nonrebreather at 12 liters and increased to 95%. Her family, which includes her , after discussing with Dr. Kearns, Levon Levon physician, they wished to go to care and comfort measures and after discussing with the hospice care with [facility], [facility] requested that the patient be placed into the hospital under inpatient hospice. Her notes that she started having some stomach pains early in the week around Thursday that progressively worsened to where she was having emesis as described as coffee grounds and there was also mention of some change in her stools from the [facility] that were not normal but not described in any specific sense. [facility] nurse is going to admit the patient. Mrs. Valdes is in critical condition at time of admission. LABORATORY: White count 17,700, hemoglobin 11.4, hematocrit 35.1, platelet count 209,000. Differential did show a left shift. Chemistries showed potassium 2.8, chloride 95, BUN 77, creatinine 3.64. Liver functions showed an elevated AST. RADIOLOGY: She had a chest x-ray initially on admission to the . with no acute findings. HOSPITAL COURSE: Ms. Valdes was admitted from the . on 05/01/18 for sepsis and hypovolemic shock, and transferred to inpatient hospice care with [facility]. Her prognosis was grim with not unexpected. Family was wishing the patient to be kept on care and comfort measures. PLAN: Ms. Valdes on the morning of 05/03/18 with family at bedside. She remained on care and comfort measures during entire hospitalization with [facility] and was pronounced at 0138. The patient's body was released to the [facility]. #[id number] [facility]
== END 2018-05-03 02:25 | disposition expired | DRG 872 ==
LOC: ER 02:43 → MS 05:36
PROVIDERS: ADMIT Nurse Practitioner Family; ATTEND Nurse Practitioner Family
DX: A41.9 Sepsis, unspecified organism (principal); N17.9 Acute kidney failure, unspecified; K92.2 Gastrointestinal hemorrhage, unspecified; F03.90 Unspecified dementia, unspecified severity, without behavioral disturbance, psychotic disturbance, mood disturbance, and anxiety; E87.6 Hypokalemia; R57.1 Hypovolemic shock; K21.9 Gastro-esophageal reflux disease without esophagitis; I46.9 Cardiac arrest, cause unspecified; Z51.5 Encounter for palliative care; Z66 Do not resuscitate